=== PATIENT | female | born 1950 | race Caucasian/White ===

== ENCOUNTER 2017-04-11 18:46 | Observation (INO) | payer MEDICARE, OTHER ==
[~2017-04-11] VITALS: Ht 165.1 cm; Wt 85.3 kg
[~2017-04-11 18:46] MED LIST: ATOR20TA PO; LEVE500 PO; OMEP20TA39 PO
[2017-04-11 18:55] VITALS: BP 141/83; PULSE 82; RESP 18; TEMP 97.3; O2SAT 97
[2017-04-11] MEDS ORDERED: VITA20003 PO (18:57)
[2017-04-11] MEDS ORDERED: GABA100C4 PO (18:57)
[2017-04-11] MEDS ORDERED: MULTTAB67 PO (18:57)
[2017-04-11] MEDS ORDERED: ALEN1TAB48 PO (18:57)
[2017-04-11] MEDS ORDERED: NAPR220C22 PO (18:57)
[2017-04-11] MEDS ORDERED: ATOR20TA15 PO (18:57)
[2017-04-11] MEDS ORDERED: VITA10002 PO (18:57)
[2017-04-11] MEDS ORDERED: OMEP20TA PO (18:57)
[2017-04-11 19:15] LABS: AUTOMATED NEUTROPHIL # 4.8 TH/MM3 (1.8-7.7); BASOPHIL # 0.2 TH/MM3 (0-0.2); BASOPHIL % 2.5 % (0.0-2.0); EOSINOPHIL # 0.2 TH/MM3 (0-0.4); EOSINOPHIL % 2.8 % (0.0-4.0); HEMO FLAGS DIFF FINAL; LYMPH % 21.4 % (9.0-44.0); LYMPHOCYTE # 1.6 TH/MM3 (1.0-4.8); MEAN CELL VOLUME 88.3 FL (80.0-100.0); MEAN CORPUSCULAR HEMOGLOBIN 29.8 PG (27.0-34.0); MEAN CORPUSCULAR HGB CONC 33.7 % (32.0-36.0); MONO % 8.8 % (0.0-8.0); NEUT % 64.5 % (16.0-70.0); PLATELET COUNT 295 TH/MM3 (150-450); RED BLOOD COUNT 4.42 MIL/MM3 (4.00-5.30); RED CELL DISTRIBUTION WIDTH 12.8 % (11.6-17.2); WHITE BLOOD COUNT 7.4 TH/MM3 (4.0-11.0)
--- NOTE | 2017-04-11 19:17 | PD ---
HPI Chief Complaint: Neuro Symptoms/ Deficits Time Seen by Provider: 18:57 Travel History International Travel<30 days: No Contact w/Intl Traveler<30days: No Traveled to known affect area: No History of Present Illness HPI 66-year-old female brought in by family member for lethargy, aphasia, and right arm weakness. Patient's states that the symptoms started about 2 hours prior coming to the emergency room. Patient has history of left frontotemporal glioblastoma multiforme. Patient had tumor resection in 2003 and subsequently treated with radiation and chemotherapy in 2004. Patient had brain biopsy subsequently in 2006 and 2007 with both were negative for recurrence. She was seen by Dr. Loredo, neurologist for possible seizure in the past. Patient was put on Keppra. Patient stopped taking Keppra subsequently. Patient was admitted to [facility] April 2016 stroke alert. Patient was seen by Dr. Henning, neurologist and thought most likely another seizure and not CVA. Patient was advised to take Keppra. Patient was again taken off Keppra recently because of side effects. EEG show left hemisphere slowing consistent with a glioma. Patient has been doing well until today when her noticed patient became more lethargic, aphasic and right hand weakness and unsteady gait this evening. Patient was brought to ED for evaluation. Patient' s reported no recent fall. Patient's reported no fever coughing congestion. Patient's reported no vomiting or diarrhea. Patient has history hypertension. Patient also has been seeing Dr. Plasencia, oncologist. Patient's states the patient normally have some weakness on the right arm right leg warm glioblastoma. PFSH Past Medical History Arthritis: Yes Asthma: No Autoimmune Disease: No Heart Rhythm Problems: No Cancer: Yes Cardiovascular Problems: No High Cholesterol: Yes Chemotherapy: Yes Chest Pain: No Congestive Heart Failure: No COPD: No Cerebrovascular Accident: Yes Diabetes: No Endocrine: No GERD: Yes Genitourinary: No Hiatal Hernia: No Immune Disorder: No Kidney Stones: No Musculoskeletal: Yes Neurologic: Yes Psychiatric: No Reproductive: No Respiratory: No Immunizations Current: Yes Migraines: No Renal Failure: No Seizures: Yes Sleep Apnea: No Thyroid Disease: No Ulcer: No : 1 Para: 1 Past Surgical History Abdominal Surgery: No AICD: No Arteriovenous Shunt: No Cardiac Surgery: No Section: Yes Ear Surgery: No Eye Surgery: No Genitourinary Surgery: No Gynecologic Surgery: No Insulin Pump: No Joint Replacement: No Neurologic Surgery: Yes (BRAIN TUMOR REMOVED X2 10 YEARS AGO) Oral Surgery: No Pacemaker: No Thoracic Surgery: No Social History Alcohol Use: No Tobacco Use: No Substance Use: No Allergies-Medications (Allergen,Severity, Reaction): Coded Allergies: Latex (Verified Allergy, Unknown, 04/11/17) Reported Meds & Prescriptions Reported Meds & Active Scripts Active Reported Vitamin B-12 (Cyanocobalamin) 1,000 Mcg Tab 1,000 Mcg PO DAILY Omeprazole 20 Mg Tab 20 Mg PO DAILY Aleve (Naproxen Sodium) 220 Mg Capsule 440 Mg PO DIRECTED Gabapentin 100 Mg Cap 100 Mg PO TID Alendronate (Alendronate Sodium) 70 Mg Tab 70 Mg PO Q7D Atorvastatin (Atorvastatin Calcium) 20 Mg Tab 20 Mg PO HS Multiple Vitamin 1 Tab 2 Tab PO DAILY Review of Systems ROS Limitations: Altered Mental Status Physical Exam Narrative GENERAL: Well-nourished, well-developed patient. SKIN: Focused skin assessment warm/dry. HEAD: Normocephalic. EYES: No scleral icterus. No injection or drainage. NECK: Supple, trachea midline. No JVD or lymphadenopathy. CARDIOVASCULAR: Regular rate and rhythm without murmurs, gallops, or rubs. RESPIRATORY: Breath sounds equal bilaterally. No accessory muscle use. GASTROINTESTINAL: Abdomen soft, non-tender, nondistended. MUSCULOSKELETAL: No cyanosis, or edema. BACK: Nontender without obvious deformity. No CVA tenderness. Neurologic exam: Patient came in a basic and lethargic and slowly follows command. Patient became more awake subsequently and answer questions appropriately. Patient started moving all extremity. Patient has mild weakness on the right arm. Otherwise no facial drooping, no sensory deficit. Deep tendon reflexes 1+ and equal. Negative Babinski. Data Data Last Documented VS Vital Signs Date Time Temp Pulse Resp B/P Pulse Ox O2 Delivery O2 Flow Rate FiO2 04/11/17 18:55 Room Air 04/11/17 18:55 97 04/11/17 18:55 97.3 82 18 141/83 Orders Electrocardiogram (04/11/17 18:57) Complete Blood Count With Diff (04/11/17 18:57) Comprehensive Metabolic Panel (04/11/17 18:57) Prothrombin Time / Inr (Pt) (04/11/17 18:57) Act Partial Throm Time (Ptt) (04/11/17 18:57) Urinalysis - C+S If Indicated (04/11/17 18:57) Thyroid Stimulating Hormone (04/11/17 18:57) Chest, Single Ap (04/11/17 18:57) Ct Brain W/O Iv Contrast(Rout) (04/11/17 18:57) Iv Access Insert/Monitor (04/11/17 18:57) Ecg Monitoring (04/11/17 18:57) Oxygen Administration (04/11/17 18:57) Oximetry (04/11/17 18:57) Consult Neurology (04/11/17 ) Valproate Inj (Depacon Inj) (04/11/17 20:15) Acetaminophen (Tylenol) (04/11/17 20:15) Place In Observation (04/11/17 ) Vital Signs (Adult) Q4H (04/11/17 20:11) Activity Oob With Assistance (04/11/17 20:11) South Asian History Professor / Telemetry .CONTINUOUS (04/11/17 20:11) Diet Heart Healthy (04/12/17 Breakfast) Sodium Chloride 0.9% Flush (Ns Flush) (04/11/17 20:15) Sodium Chloride 0.9% Flush (Ns Flush) (04/11/17 21:00) Basic Metabolic Panel (Bmp) (04/12/17 06:00) Complete Blood Count With Diff (04/12/17 06:00) Naloxone Inj (Narcan Inj) (04/11/17 20:15) Eeg Study (04/11/17 ) Labs Laboratory Tests Test 04/11/17 19:01 White Blood Count 7.4 TH/MM3 Red Blood Count 4.42 MIL/MM3 Hemoglobin 13.1 GM/DL Hematocrit 39.0 % Mean Corpuscular Volume 88.3 FL Mean Corpuscular Hemoglobin 29.8 PG Mean Corpuscular Hemoglobin 33.7 % Concent Red Cell Distribution Width 12.8 % Platelet Count 295 TH/MM3 Mean Platelet Volume 8.5 FL Neutrophils (%) (Auto) 64.5 % Lymphocytes (%) (Auto) 21.4 % Monocytes (%) (Auto) 8.8 % Eosinophils (%) (Auto) 2.8 % Basophils (%) (Auto) 2.5 % Neutrophils # (Auto) 4.8 TH/MM3 Lymphocytes # (Auto) 1.6 TH/MM3 Monocytes # (Auto) 0.7 TH/MM3 Eosinophils # (Auto) 0.2 TH/MM3 Basophils # (Auto) 0.2 TH/MM3 CBC Comment DIFF FINAL Differential Comment Sodium Level 135 MEQ/L Potassium Level 4.2 MEQ/L Chloride Level 103 MEQ/L Carbon Dioxide Level 25.2 MEQ/L Anion Gap 7 MEQ/L Blood Urea Nitrogen 10 MG/DL Creatinine 0.90 MG/DL Estimat Glomerular Filtration 62 ML/MIN Rate Random Glucose 90 MG/DL Calcium Level 8.6 MG/DL Total Bilirubin 1.2 MG/DL Aspartate Amino Transf 25 U/L (AST/SGOT) Alanine Aminotransferase 32 U/L (ALT/SGPT) Alkaline Phosphatase 162 U/L Total Protein 7.0 GM/DL Albumin 3.9 GM/DL Thyroid Stimulating Hormone 3.920 uIU/ML 3rd Gen [facility] Medical Decision Making Medical Screen Exam Complete: Yes Emergency Medical Condition: Yes Interpretation(s) Last Impressions Head CT 04/11/171856 Signed Impressions: Service Date/Time: Tuesday, April 11, 2017 19:03 - CONCLUSION: 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 Hernandez Roper MD FACR Chest X-Ray 04/11/171856 Signed Impressions: Service Date/Time: Tuesday, April 11, 2017 19:10 - CONCLUSION: No acute disease. Hernandez Roper MD FACR 1959 PM. CBC within normal limit. CMP within normal limit. Alkaline phosphatase 162. Total bili 1.2. TSH 3.92. Differential Diagnosis Differential diagnosis including seizures, TIA, CVA, electrolyte abnormality, arrhythmia. Narrative Course 66-year-old female with sudden onset of neurological deficits including lethargy , aphasia, right arm weakness. Symptoms resolving while in the ED. History of glioblastoma multiformity, seizure in the past. I spoke with Dr. Herron, neurologist addiction specialist. Most likely recurrent seizure and not CVA. Advised Depakote loading dose and maintenance. Depakote [address] Herron advised Depakote 150 mg twice a day for maintenance. Advised EEG in a.m. Diagnosis Primary Impression: Seizure disorder Admitting Information Admitting Physician Requests: Observation Emilio Vanessa MD Apr 11, 2017 19:17
--- NOTE | 2017-04-11 19:23 | RADRPT ---
EXAM DATE/TIME: 04/11/2017 19:10 [facility] COMPARISON: No previous studies available for comparison. INDICATIONS : Shortness of breath, possible stroke. MEDICAL HISTORY : None. SURGICAL HISTORY : None. ENCOUNTER: Initial ACUITY: 1 day PAIN SCORE: Non-responsive. LOCATION: Bilateral chest FINDINGS: A single view of the chest demonstrates the lungs to be symmetrically aerated without evidence of mas s, infiltrate or effusion. The cardiomediastinal contours are unremarkable. Osseous structures are intact. CONCLUSION: No acute disease. Hernandez Roper MD FACR on April 11, 2017 at 19:21 Board Certified Radiologist. This report was verified electronically.
[2017-04-11 19:24] LABS: CHLORIDE 103 MEQ/L (98-107); POTASSIUM 4.2 MEQ/L (3.5-5.1); SODIUM (NA) 135 MEQ/L (136-145)
--- NOTE | 2017-04-11 19:24 | RADRPT ---
EXAM DATE/TIME: 04/11/2017 19:03 [facility] COMPARISON: CT BRAIN W/O CONTRAST, April 30, 2016, 20:14. INDICATIONS : Altered mental status. Evaluate for cerebrovascular accident. RADIATION DOSE: 55.65 CTDIvol (mGy) MEDICAL HISTORY : Seizures. Cerebrovascular disease. Blastoma SURGICAL HISTORY : Craniotomy. ENCOUNTER: Initial ACUITY: 1 day PAIN SCALE: 0/10 LOCATION: cranial TECHNIQUE: Multiple contiguous axial images were obtained of the head. Using automated exposure control and adj ustment of the mA and/or kV according to patient size, radiation dose was kept as low as reasonably a chievable to obtain optimal diagnostic quality images. DICOM format image data is available electro nically for review and comparison. FINDINGS: There is evidence for previous surgery in the left hemisphere. There is mild dilatation of the left lateral ventricle. The right hemisphere is unremarkable. The posterior fossa appears normal. Orbit s are unremarkable. CONCLUSION: 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 Hernandez Roper MD FACR on April 11, 2017 at 19:22 Board Certified Radiologist. This report was verified electronically.
[2017-04-11 19:29] LABS: ANION GAP 7 MEQ/L (5-15); BICARBONATE 25.2 MEQ/L (21.0-32.0); BLOOD UREA NITROGEN 10 MG/DL (7-18)
[2017-04-11 19:31] LABS: ALT (GPT) 32 U/L (10-53); AST (GOT) 25 U/L (15-37)
[2017-04-11 19:32] LABS: GLOMERULAR FILTRATION RATE 62 ML/MIN (>89)
[2017-04-11 19:33] LABS: TOTAL BILIRUBIN ADULT 1.2 MG/DL (0.2-1.0)
[2017-04-11 19:34] LABS: ALKALINE PHOSPHATASE 162 U/L (45-117)
[2017-04-11 20:00] VITALS: BP 154/83; PULSE 84; RESP 16; O2SAT 97
[2017-04-11] MEDS ORDERED: VALPROATE INJ 500 MG in SODIUM CHLORIDE 0.9% INJ 100 ML IV ONE (20:15)
[2017-04-11] MEDS ORDERED: SODIUM CHLORIDE 0.9% FLUSH 10 ML FLUSH IV FLUSH PRN (20:15)
[2017-04-11] MEDS ORDERED: ACETAMINOPHEN 325 MG TAB PO ONE (20:15)
[2017-04-11] MEDS ORDERED: NALOXONE HCL 0.4 MG/ML AMP IV PRN (20:15)
[2017-04-11 21:15] VITALS: BP 136/79; PULSE 78; RESP 17; O2SAT 96
[2017-04-11 21:38] LABS: INTERNATIONAL NORMALIZED RATIO 0.9 RATIO
[2017-04-11 21:41] LABS: BLOOD, URINE NEG (NEG); GLUCOSE,URINE NEG (NEG); KETONE, URINE NEG (NEG); NITRITE,URINE NEG (NEG)
[2017-04-11 21:51] LABS: URINE COLOR YELLOW (YELLW/STRAW)
[2017-04-11 21:52] LABS: COMMENT (UR) CULTURE INDICATED; CULTURE IF INDICATED CULTURE INDICATED; RBC, URINE 0-3 /hpf (0-3); RENAL EPITHELIAL CELLS 0-5 /hpf; SQUAMOUS EPITHELIAL CELL URINE 0-5 /hpf (0-5)
[2017-04-11 22:26] VITALS: BP 136/75; PULSE 75; RESP 20; TEMP 97; O2SAT 99
[2017-04-11] MEDS: SODIUM CHLORIDE 0.9% FLUSH 10 ML FLUSH IV FLUSH SCH (22:26)
[2017-04-11 22:55] VITALS: PULSE 76
[2017-04-12 08:00] VITALS: BP 148/71; PULSE 82; RESP 20; TEMP 97.7; O2SAT 100
[2017-04-12] MEDS: PANTOPRAZOLE SOD 20 MG DELAYED RELEASE TAB PO SCH (09:39)
[2017-04-12] MEDS: GABAPENTIN 100 MG CAP PO SCH ×3 (09:39→17:46)
[2017-04-12] MEDS: SODIUM CHLORIDE 0.9% FLUSH 10 ML FLUSH IV FLUSH SCH ×2 (09:57→21:13)
[2017-04-12] MEDS: VALPROIC ACID 250 MG CAP PO SCH ×2 (09:57→21:13)
--- NOTE | 2017-04-12 09:57 | EKG ---
Date Performed: 04/11/2017 Time Performed: 19:05:12 PTAGE: 66 years EKG: Sinus rhythm NONSPECIFIC T-WAVE ABNORMALITY BORDERLINE ECG Compared to prior tracing no significant change PREVIOUS TRACING : 04/30/2016 21.02 DOCTOR: Erick Soriano Interpretating Date/Time 04/12/2017 09:51:49
[2017-04-12 10:25] LABS: AUTOMATED NEUTROPHIL # 5.5 TH/MM3 (1.8-7.7); BASOPHIL % 0.5 % (0.0-2.0); EOSINOPHIL # 0.2 TH/MM3 (0-0.4); EOSINOPHIL % 2.8 % (0.0-4.0); HEMATOCRIT 39.5 % (35.0-46.0); HEMO FLAGS DIFF FINAL; LYMPHOCYTE # 1.1 TH/MM3 (1.0-4.8); MEAN CORPUSCULAR HEMOGLOBIN 29.7 PG (27.0-34.0); MEAN CORPUSCULAR HGB CONC 34.5 % (32.0-36.0); NEUT % 75.7 % (16.0-70.0); PLATELET COUNT 325 TH/MM3 (150-450); RED BLOOD COUNT 4.59 MIL/MM3 (4.00-5.30); WHITE BLOOD COUNT 7.2 TH/MM3 (4.0-11.0)
[2017-04-12 10:37] LABS: POTASSIUM 3.9 MEQ/L (3.5-5.1)
[2017-04-12 10:40] LABS: BICARBONATE 29.7 MEQ/L (21.0-32.0)
--- NOTE | 2017-04-12 11:01 | HHI.HP ---
[facility] Ryder Vo MD Admission Diagnosis seizure disorder Diagnoses: (1) suspected seizure Diagnosis: Principal Chief Complaint: lethargy, aphasia, weakness per ED note Travel History International Travel<30 Days: No Contact w/Intl Traveler <30 Da: No Traveled to Known Affected Are: No History of Present Illness Written by Valerie Caro acting as scribe for Dr. Kulkarni on 04/12/17 at 1040. 66-year-old female admitted for suspected seizure. The patient cannot provide a history as she does not remember what brought her into the hospital so history is obtained from ED note and EMR. Apparently the patient's brought her in the hospital for lethargy, aphasia, right arm weakness, and unsteady gait which started 2 hours prior coming to the ED. She has a history of frontotemporal glioblastoma multiforme and has had multiple resections. She presented on 04/30/16 as a stroke alert but was evaluated by neurology and was thought to be another seizure. She was on Keppra but is not taking this currently due to side effects. EEG at that time showed left hemisphere slowing consistent with a glioma. According to the ED note per the , the patient does have weakness in the right arm and right leg at baseline. Patient denies any dizziness, chest pain, shortness of breath, nausea or vomiting. Review of Systems ROS Limitations: Clinical Condition Past Family Social History Past Medical History Per EMR, patient has history of glioblastoma, seizures, hyperlipidemia, GERD, arthritis. Past Surgical History Glioblastoma resection 2 Reported Medications Vitamin D (Cholecalciferol) 2,000 Unit Tab 1 Tab PO DAILY Vitamin B-12 (Cyanocobalamin) 1,000 Mcg Tab 1,000 Mcg PO DAILY Omeprazole 20 Mg Tab 20 Mg PO DAILY Aleve (Naproxen Sodium) 220 Mg Capsule 440 Mg PO DIRECTED Gabapentin 100 Mg Cap 100 Mg PO TID Alendronate (Alendronate Sodium) 70 Mg Tab 70 Mg PO Q7D Atorvastatin (Atorvastatin Calcium) 20 Mg Tab 20 Mg PO HS Multiple Vitamin 1 Tab 2 Tab PO DAILY Allergies: Coded Allergies: Dilantin (Verified Allergy, Unknown, 04/11/17) Latex (Verified Allergy, Unknown, 04/11/17) Penicillin (Verified Allergy, Unknown, 04/11/17) Family History No family history of seizures. Social History Denies alcohol use, cigarette smoking, or illicit drug use. Physical Exam Vital Signs Vital Signs Date Time Temp Pulse Resp B/P Pulse Ox O2 Delivery O2 Flow Rate FiO2 04/12/17 08:00 97.7 82 20 148/71 100 04/12/17 04:00 Room Air 04/12/17 00:00 Room Air 04/11/17 22:55 76 04/11/17 22:26 97.0 75 20 136/75 99 04/11/17 22:00 Room Air 04/11/17 21:26 18 04/11/17 21:15 Room Air 04/11/17 21:15 78 17 136/79 96 Room Air 04/11/17 20:00 84 16 154/83 97 Room Air 04/11/17 18:55 Room Air 04/11/17 18:55 97 Room Air 04/11/17 18:55 97.3 82 18 141/83 97 04/11/17 18:55 Room Air Physical Exam GENERAL: This is a well-nourished, well-developed patient, in no apparent distress. SKIN: No rashes, ecchymoses or lesions. Warm and dry. HEAD: Atraumatic. Normocephalic. CARDIOVASCULAR: Regular rate and rhythm without murmurs, gallops, or rubs. RESPIRATORY: Clear to auscultation. Breath sounds equal bilaterally. No wheezes , rales, or rhonchi. GASTROINTESTINAL: Abdomen soft, non-tender, nondistended. MUSCULOSKELETAL: No obvious deformities. NEUROLOGICAL: Awake and alert. No obvious cranial nerve deficits. Five out of 5 muscle strength in bilateral upper and lower extremities. Laboratory Laboratory Tests Test 04/11/17 04/11/17 04/11/17 04/12/17 19:01 21:09 21:20 10:00 White Blood Count 7.4 Red Blood Count 4.42 Hemoglobin 13.1 Hematocrit 39.0 Mean Corpuscular Volume 88.3 Mean Corpuscular Hemoglobin 29.8 Mean Corpuscular Hemoglobin 33.7 Concent Red Cell Distribution Width 12.8 Platelet Count 295 Mean Platelet Volume 8.5 Neutrophils (%) (Auto) 64.5 Lymphocytes (%) (Auto) 21.4 Monocytes (%) (Auto) 8.8 Eosinophils (%) (Auto) 2.8 Basophils (%) (Auto) 2.5 Neutrophils # (Auto) 4.8 Lymphocytes # (Auto) 1.6 Monocytes # (Auto) 0.7 Eosinophils # (Auto) 0.2 Basophils # (Auto) 0.2 CBC Comment DIFF FINAL Differential Comment Sodium Level 135 139 Potassium Level 4.2 3.9 Chloride Level 103 103 Carbon Dioxide Level 25.2 29.7 Anion Gap 7 6 Blood Urea Nitrogen 10 10 Creatinine 0.90 0.97 Estimat Glomerular Filtration 62 57 Rate Random Glucose 90 102 Calcium Level 8.6 8.9 Total Bilirubin 1.2 Aspartate Amino Transf 25 (AST/SGOT) Alanine Aminotransferase 32 (ALT/SGPT) Alkaline Phosphatase 162 Total Protein 7.0 Albumin 3.9 Thyroid Stimulating Hormone 3.920 3rd Gen Prothrombin Time 10.0 Prothromb Time International 0.9 Ratio Activated Partial 23.0 Thromboplast Time Urine Color YELLOW Urine Turbidity CLEAR Urine pH 7.0 Urine Specific [place] 1.010 Urine Protein NEG Urine Glucose (UA) NEG Urine Ketones NEG Urine Occult Blood NEG Urine Nitrite NEG Urine Bilirubin NEG Urine Leukocyte Esterase MOD Urine RBC 0-3 Urine WBC 9-14 Urine WBC [place] FEW Urine Squamous Epithelial 0-5 Cells Urine Renal Epithelial Cells 0-5 Microscopic Urinalysis Comment CULTURE INDICATED Test 04/12/17 10:10 White Blood Count 7.2 Red Blood Count 4.59 Hemoglobin 13.6 Hematocrit 39.5 Mean Corpuscular Volume 86.0 Mean Corpuscular Hemoglobin 29.7 Mean Corpuscular Hemoglobin 34.5 Concent Red Cell Distribution Width 12.0 Platelet Count 325 Mean Platelet Volume 8.0 Neutrophils (%) (Auto) 75.7 Lymphocytes (%) (Auto) 15.0 Monocytes (%) (Auto) 6.0 Eosinophils (%) (Auto) 2.8 Basophils (%) (Auto) 0.5 Neutrophils # (Auto) 5.5 Lymphocytes # (Auto) 1.1 Monocytes # (Auto) 0.4 Eosinophils # (Auto) 0.2 Basophils # (Auto) 0.0 CBC Comment DIFF FINAL Differential Comment Date/Time Procedure Status Source Growth 04/11/17 21:20 Urine Culture Received Urine Clean Catch Pending Result Diagram: 04/12/17 1010 04/12/17 1000 Imaging Last Impressions Head CT 04/11/171856 Signed Impressions: Service Date/Time: Tuesday, April 11, 2017 19:03 - CONCLUSION: 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 Hernandez Roper MD FACR Chest X-Ray 04/11/171856 Signed Impressions: Service Date/Time: Tuesday, April 11, 2017 19:10 - CONCLUSION: No acute disease. Hernandez Roper MD FACR Assessment and Plan Assessment and Plan 66-year-old female with: Suspected seizure: Patient presented with lethargy, aphasia, and right arm weakness with history of glioblastoma. ED physician spoke with Dr. Herron neurologist who states it is likely recurrent seizure and not CVA. Depakote loading dose was administered and patient was placed on scheduled Depakote po. -Continue Depakote 250 mg po twice a day -Continue home gabapentin 100 mg tid -Seizure precautions, neuro checks -EEG results pending -Neurology consultation appreciated; states if Depakote level therapeutic and EEG is normal patient can be discharged tomorrow and follow up outpatient for MRI of the brain with and without contrast. -PT and ST evaluations Chronic medical problems include hyperlipidemia and GERD: Continue home medications. DVT prophylaxis: SCDs. This note was transcribed by luanne Caro. I, Dr. Pranav Ashraf personally performed the history, physical exam, and medical decision making; and confirmed the accuracy of the information in the transcribed note. Authenticated by Dr. Pranav Ashraf on 04/12/17 at 1040. Valerie Caro Apr 12, 2017 11:00 Pranav Fabian MD Apr 19, 2017 19:31
[2017-04-12 12:00] VITALS: BP 175/81; PULSE 82; RESP 20; TEMP 96.2; O2SAT 98
--- NOTE | 2017-04-12 15:26 | MB ---
cc: ANDRES MCDANIELS M.D. DATE OF CONSULTATION: 04/12/2017 DATE OF : 1950 REASON FOR CONSULTATION Seizure. HISTORY OF PRESENT ILLNESS The history is taken from the chart as the patient cannot give me a history. She is a 66-year-old woman brought in by family for right arm weakness, lethargy and aphasia that started about two hours prior to coming to the ER. She has a history of left frontotemporal glioblastoma tumor resection in 2003, treated with radiation and chemo in 2004, brain biopsy in 2006 and 2007 negative for recurrence. She was seen by Dr. Loredo for possible seizures in the past and placed on Keppra. Apparently she stopped the Keppra for unknown reasons. She came to [place] in April of last year for Stroke Alert and was seen by Dr. Diaz, thought she had another seizure, not a stroke, was advised to take the Keppra, but again taken off due to side Effexor. Her EEG at that time showed slowing consistent with a structural lesion. She had been doing well until her apparently noted that she was more lethargic, aphasix, some right hand weakness, unsteady gait, brought in for eval. The patient cannot give me any history whatsoever. Her oncologist is Dr. Plasencia. PAST MEDICAL HISTORY As above. he has a past medical history also of hypertension. ALLERGIES LATEX. MEDICATIONS Current medicines are: 1. B12. 2. Omeprazole. 3. Aleve. 4. Gabapentin 100 mg t.i.d. 5. Alendronate. 6. Atorvastatin. 7. Multiple vitamin. 8. PHYSICAL EXAMINATION VITAL SIGNS: Temperature 96.2, pulse 82, respiratory rate 20, blood pressure 175/81, satting 98%. NECK: Supple. I do not appreciate any carotid bruits. HEART: Regular. NEUROLOGIC: She is awake and alert. She is aphasic. She can tell me her birthday is [birth year] but cannot tell me anymore than that. Does not know why she is here. She follows simple commands. Her pupils are reactive. Face looks symmetrical. Motor-blood I do not see any significant weakness on one side. DTRs are symmetrical. Toes withdraws. She does not follow cerebellar testing concept but I did observe her walking from the bathroom to the bed without any significant weakness. LABORATORY CBC is really unremarkable. PTT is 23. Chemistries are reviewed. TSH is 3.92. Free T4 and T3 are pending. Urine: Moderate leukocyte esterase. Culture is done. There is no growth. IMAGING Chest x-ray: No acute disease. CT head shows evidence for previous surgery and what they described as an old left infarct. It is likely where the glioblastoma resection might have taken place. IMPRESSION Possible seizure versus even TIA in a 66-year-old woman with left-sided glioblastoma in the frontotemporal resected. She was loaded with Keppra and Depakote 500 in the ED and now she is on 250 q.12h. She is on gabapentin 100 mg t.i.d. at this point in time go ahead and continue with the Depakote. Check a level. We want her level at least at 50 to be therapeutic but try not to get it close to 100 as it may cause her to feel dizzy and lightheaded. Will continue the gabapentin since she has already been on it and tolerating it. I am not sure what her last eval was with oncology. Her last MRI, however, was in April of last year. They did not see any ischemia only postsurgical changes. At some point in time she probably will need another MRI of the brain. I would have her follow up as an outpatient and have an MRI of the brain with and without contrast, have her follow-up with the primary care and with her neurologist as well as with her oncologist. She did have an EEG. If that comes back unremarkable and her levels are therapeutic and she is doing well she can certainly be discharged tomorrow. MD JOSUÉ Dale/PARISH /3:08 PM /3:17 PM
[2017-04-12 16:00] VITALS: BP 143/60; PULSE 75; RESP 20; TEMP 96.6; O2SAT 98
[2017-04-12 16:43] LABS: FREE T3 2.42 PG/ML (2.18-3.98); FREE T4 0.9 NG/DL (0.76-1.46)
--- NOTE | 2017-04-12 18:12 | MG ---
cc: LAZARO RUIZ Lab No: [id number] Date: 04/12/17 Age: 66 Sex: F Race: Hyperventilation not performed. Left hemisphere slowing, glioma, slowing phase reversing in the past EEG done a year ago, status post brain resection on the right. Depakote Gabapentin Recording shows an 8 Hz posterior rhythm which looks normal in the right hemisphere, but there is slowing in the 5 Hz range on the left central head region and sometimes in the delta range on the left temporal head region, probably some breech effect from a cranial defect as the amplitude is much higher on the right temporal head region than that on the left with some focal slowing but no spikes are noted. Occasional phase reversing sharply contoured theta wave is seen over the left central head region at C3, probably more represents a chance phase reversal considering all if the focal slowing, no spikes are noted. IMPRESSION As noted above, right hemisphere slowing, no spikes are noted. Question breach, see above for further discussion. No significant seizure activity is seen. MD ORVILLE Mendoza/ /5:12 PM /6:11 PM
[2017-04-12 20:00] VITALS: BP 143/87; PULSE 92; RESP 20; TEMP 97.3; O2SAT 96
[2017-04-12 21:00] VITALS: PULSE 94
[2017-04-12] MEDS ORDERED: ATORVASTATIN 20 MG TAB PO SCH (21:00)
[2017-04-13] VITALS: BP 136/96; PULSE 78; RESP 20; TEMP 96.3; O2SAT 98
[2017-04-13 04:00] VITALS: BP 141/82; PULSE 78; RESP 20; TEMP 96.8; O2SAT 98
[2017-04-13 08:00] VITALS: BP 139/88; PULSE 65; RESP 19; TEMP 98; O2SAT 95
[2017-04-13] MEDS: PANTOPRAZOLE SOD 20 MG DELAYED RELEASE TAB PO SCH (08:39)
[2017-04-13] MEDS: GABAPENTIN 100 MG CAP PO SCH (08:39)
[2017-04-13] MEDS: SODIUM CHLORIDE 0.9% FLUSH 10 ML FLUSH IV FLUSH SCH (08:40)
[2017-04-13] MEDS: VALPROIC ACID 250 MG CAP PO SCH (08:40)
--- NOTE | 2017-04-13 12:22 | HHI.PR ---
Subjective Remarks Patient reports she is feeling fine. No further seizure activities. Valproic acid level in the 70s. Objective Vitals Vital Signs Date Time Temp Pulse Resp B/P Pulse Ox O2 Delivery O2 Flow Rate FiO2 04/13/17 08:00 98.0 65 19 139/88 95 04/13/17 08:00 Room Air 04/13/17 04:00 96.8 78 20 141/82 98 04/13/17 00:00 96.3 78 20 136/96 98 04/12/17 21:00 Room Air 04/12/17 21:00 94 04/12/17 20:00 97.3 92 20 143/87 96 04/12/17 16:00 96.6 75 20 143/60 98 I/O 04/12/17 04/12/17 04/12/17 04/13/17 04/13/17 04/13/17 07:00 15:00 23:00 07:00 15:00 23:00 Intake Total 0 ml 450 ml 0 ml Balance 0 ml 450 ml 0 ml Intake Oral 0 ml 450 ml 0 ml # Voids 2 2 2 Result Diagram: 04/12/17 1010 04/12/17 1000 Imaging Last Impressions Head CT 04/11/171856 Signed Impressions: Service Date/Time: Tuesday, April 11, 2017 19:03 - CONCLUSION: 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 Hernandez Roper MD FACR Chest X-Ray 04/11/171856 Signed Impressions: Service Date/Time: Tuesday, April 11, 2017 19:10 - CONCLUSION: No acute disease. Hernandez Roper MD FACR Objective Remarks GENERAL: This is a well-nourished, well-developed patient, in no apparent distress. CARDIOVASCULAR: Normal rate and regular rhythm without murmurs, gallops, or rubs. RESPIRATORY: Good respiratory efforts. Breath sounds equal and clear to auscultation bilaterally. GASTROINTESTINAL: Abdomen soft, non-tender, non-distended. Normal active bowel sounds MUSCULOSKELETAL: Extremities without cyanosis, or edema. NEURO: Alert & Oriented x4 to person, place, time, situation. Moves all ext x4 PSYCH: Appropriate mood and affect. A/P Problem List: (1) suspected seizure Status: Acute Assessment and Plan 66-year-old female with: Suspected seizure: Patient presented with lethargy, aphasia, and right arm weakness with history of glioblastoma. Likely thought to be due to a seizure. Patient followed by neurology. Depakote loading dose was administered and patient was placed on scheduled Depakote po. from the emergency room. No further seizure activity reported. Patient returned to baseline. She is discharged home on valproic acid 250 mg twice a day and to continue on home dose gabapentin 100 mg 3 times a day. Appreciate neurologist input. I did discuss with the patient and her at length about outpatient follow-up regarding repeat MRI of the brain. The indicated they have good follow-up and will follow through. Seizure precautions discussed. Chronic medical problems include hyperlipidemia and GERD: Continue home medications. Discharge Planning Discharge home in good condition Follow up with: PCP, oncology, neurology Activities: Regular as tolerated except for no driving, no swimming, no climbing heights, no heavy machinery Diet: Heart healthy Meds: Per med rec. Robin Gallardo MD Apr 13, 2017 12:22
[2017-04-13] MEDS ORDERED: VALP250 PO (12:24)
--- NOTE | 2017-04-13 12:24 | HHI.DCPOC ---
Discharge Care Plan Diagnosis: (1) Seizure disorder Goals to Promote Your Health * To prevent worsening of your condition and complications * To maintain your health at the optimal level Directions to Meet Your Goals Take your medications as prescribed Follow your dietary instruction Follow activity as directed Keep your appointments as scheduled Take your immunizations and boosters as scheduled If your symptoms worsen call your PCP, if no PCP go to Urgent Care Center or Emergency Room Smoking is Dangerous to Your Health. Avoid second hand smoke Call the 24-hour hour crisis hotline for domestic abuse at Robin Gallardo MD Apr 13, 2017 12:24
== END 2017-04-13 13:30 | disposition home or self-care (01) ==
LOC: PHED 18:46 → PHEDA 20:14 → PH3B 22:02
PROVIDERS: ADMIT Family Medicine; ATTEND Family Medicine
DX: G40.909 Epilepsy, unspecified, not intractable, without status epilepticus (principal); E78.5 Hyperlipidemia, unspecified; K21.9 Gastro-esophageal reflux disease without esophagitis; M19.90 Unspecified osteoarthritis, unspecified site; R47.01 Aphasia; M62.81 Muscle weakness (generalized); Z79.899 Other long term (current) drug therapy
CPT/HCPCS: 70450; 71010; 80048; 80053; 80164; 81001; 84439; 84443; 84481; 85025; 85610; 85730; 87086; 93005; 95819; 97162; 99285; G0378; G8987; G8988